=== PATIENT | female | born 1960 | race Caucasian/White ===

== ENCOUNTER 2016-11-26 16:48 | Emergency (ER) | payer OTHER ==
[~2016-11-26] VITALS: Ht 154.9 cm; Wt 84.4 kg
[~2016-11-26 16:48] MED LIST: ANUSOL HC,ANUCO25 MG PR; AUGMENTIN875 MG PO; BENTYL10 MG PO; BUSPAR5 MG PO; CIPRO250 MG PO; CLEOCIN300 MG PO; ECOTRIN325 MG PO; ENDOCET 5-3251 EACH PO; Ecotrin PO; GABAPENTIN300 MG PO; HYDROCHLOROTHIA25 MG PO; HYDROCODON-ACE1 EAC7 PO; ILOTYCIN1 GM LEFT EYE; KEFLEX500 MG PO; LEVOTHYROXINE50 MCG PO; LO-DOSE ASPIRIN81 M1 PO; LOMOTIL TABLET1 EACH PO; LOPRESSOR100 M1 PO; LOPRESSOR100 MG; METOPROLOL TAR100 MG; METOPROLOL TAR100 MG PO; MYCOSTATIN 100,60 ML; NEURONTIN300 MG PO; NEXIUM40 MG PO; NORCO 5/3251 TABLET PO; Neurontin PO; OXYCODONE HCL30 MG PO; OXYCODONE-ACET1 EACH; OXYCONTIN15 MG PO; OXYCONTIN30 MG; OXYCONTIN30 MG PO; OxyCONTIN PO; PAIN CREAM TP; PAXIL30 MG PO; PAXIL40 MG PO; PERCOCET 5/31 TABLET PO; PROAIR HFA8.5 GM; PROAIR HFA8.5 GM IH; PROMETHAZINE HC25 M1 PO; Percocet 5/325,Endoc PO; ROXICODONE5 MG PO; SEROQUEL100 MG PO; SEROQUEL50 MG PO; SEROquel PO; SYMBICORT60 INHALA1; SYMBICORT60 INHALA1 IH; SYNTHROID50 MCG PO; VITAMIN B-250 MG PO; [UNRECOGNIZED DRUG - REMARK]
[2016-11-26 17:15] LABS: HEMATOCRIT 34.3 % (36.0-46.0); MCH 31.6 PG (29.0-34.0); MCHC 34.4 G/DL (30.0-36.0); MEAN PLAT.VOLUME 10.1 uM^3 (9.5-12.4); RBC DIS.WIDTH-CV 12.4 % (11.8-14.6); RBC DIS.WIDTH-SD 41.8 % (39-53); RED BLOOD COUNT 3.73 M/uL (3.80-5.20); WHITE BLOOD COUNT 8.2 K/uL (4.1-10.2)
[2016-11-26 17:27] LABS: CHLORIDE 109 mEq/L (99-109); SODIUM 140 mEq/L (136-147)
[2016-11-26 17:29] LABS: GLUCOSE 106 mg/dL (70-99)
[2016-11-26 17:30] LABS: ANION GAP 9 MEQ/L (2-14)
[2016-11-26 17:33] LABS: GFR ESTIMATE (CALCULATED) > 59 mL/min/; PLATELET COUNT 140 K/uL (156-360)
[2016-11-26 17:34] LABS: UREA NITROGEN (BUN) 12 mg/dL (9-23)
[2016-11-26 19:31] LABS: TROP-I INTERPRETATION NEGATIVE; TROPONIN-I < 0.01 ng/mL (0.0-0.30)
[2016-11-26] MEDS ORDERED: PREDNISONE50 MG PO (19:43)
[2016-11-26 20:15] VITALS: BP 128/92
== END 2016-11-26 20:17 | disposition home or self-care (01) ==
LOC: EME 16:48
PROVIDERS: Emergency Medicine
DX: J44.1 Chronic obstructive pulmonary disease with (acute) exacerbation (principal); I10 Essential (primary) hypertension; Z86.73 Personal history of transient ischemic attack (TIA), and cerebral infarction without residual deficits
CPT/HCPCS: 71020; 80048; 84484; 85027; 93005; 94640; 99281; 99284; J7512

== ENCOUNTER 2017-02-01 07:02 | Emergency (ER) | payer OTHER ==
[~2017-02-01] VITALS: Ht 154.9 cm; Wt 83.3 kg
[~2017-02-01 07:02] MED LIST changes: +PREDNISONE50 MG PO
[2017-02-01] MEDS ORDERED: ESCITALOPRAM OXA5 MG PO (07:52)
[2017-02-01] MEDS ORDERED: LOPRESSOR100 M1 PO (07:52)
[2017-02-01 08:37] VITALS: BP 160/108
[2017-02-01] MEDS ORDERED: NAPROXEN500 MG PO (08:52)
[2017-02-01] MEDS ORDERED: FLEXERIL10 MG PO (08:52)
== END 2017-02-01 09:06 | disposition home or self-care (01) ==
LOC: EME 07:02
DX: S16.1XXA Strain of muscle, fascia and tendon at neck level, initial encounter (principal); S29.012A Strain of muscle and tendon of back wall of thorax, initial encounter; W01.0XXA Fall on same level from slipping, tripping and stumbling without subsequent striking against object, initial encounter; Z88.0 Allergy status to penicillin; Z88.1 Allergy status to other antibiotic agents
CPT/HCPCS: 72040; 72070; 99281; 99283; J1885

== ENCOUNTER 2017-03-08 10:44 | Emergency (ER) | payer OTHER ==
[~2017-03-08] VITALS: Ht 154.9 cm; Wt 83.4 kg
[~2017-03-08 10:44] MED LIST changes: +ESCITALOPRAM OXA5 MG PO; +FLEXERIL10 MG PO; +NAPROXEN500 MG PO
[2017-03-08 11:18] LABS: HEMATOCRIT 38.3 % (36.0-46.0); MCH 31.4 PG (29.0-34.0); MCHC 33.7 G/DL (30.0-36.0); MCV 93.2 FL (83-99); MEAN PLAT.VOLUME 9.8 uM^3 (9.5-12.4); PLATELET COUNT 159 K/uL (156-360); RBC DIS.WIDTH-CV 11.9 % (11.8-14.6); RBC DIS.WIDTH-SD 40.8 % (39-53); RED BLOOD COUNT 4.11 M/uL (3.80-5.20); WHITE BLOOD COUNT 7.2 K/uL (4.1-10.2)
[2017-03-08 11:42] LABS: CHLORIDE 110 mEq/L (99-109); SODIUM 143 mEq/L (136-147)
[2017-03-08 11:43] LABS: GLUCOSE 103 mg/dL (70-99)
[2017-03-08 11:45] LABS: ANION GAP 8 MEQ/L (2-14)
[2017-03-08 11:47] LABS: GFR ESTIMATE (CALCULATED) 45 mL/min/
[2017-03-08 11:48] LABS: UREA NITROGEN (BUN) 16 mg/dL (9-23)
[2017-03-08 13:25] LABS: ADD MIUA? YES; BILIRUBIN NEGATIVE; BLOOD SMALL; COLOR YELLOW ((YELLOW)); GLUCOSE (STRIP) NEGATIVE; KETONES NEGATIVE; LEUKOCYTES TRACE; NITRITE NEGATIVE; PROTEIN (STRIP) 30; SPECIFIC GRAVITY 1.021 (1.000-1.030); UROBILINOGEN 0.2 MG/DL (0.2-1.0)
[2017-03-08 13:37] LABS: BACTERIA NONE SEEN /HPF; EPITHELIAL CELLS RARE /HPF; MUCUS 2+ /LPF; UCUL ADDED? NO; WHITE BLOOD CELLS 0-5 /HPF (0-5)
[2017-03-08 14:38] VITALS: BP 116/69
== END 2017-03-08 14:39 | disposition home or self-care (01) ==
LOC: EME 10:44
DX: E86.0 Dehydration (principal); J44.9 Chronic obstructive pulmonary disease, unspecified; I10 Essential (primary) hypertension; F32.9 Major depressive disorder, single episode, unspecified; Z86.73 Personal history of transient ischemic attack (TIA), and cerebral infarction without residual deficits; Z88.0 Allergy status to penicillin; Z88.1 Allergy status to other antibiotic agents
CPT/HCPCS: 80048; 81003; 85027; 99281; 99284; J7030